=== PATIENT | female | born 1980 | race African-American/Black ===

== ENCOUNTER 2016-08-04 07:36 | Emergency (ER) | payer BC ==
--- NOTE | ~2016-08-04 | CT2 ---
[facility] A Service of [facility] RADIOLOGY TEXT RESULTS PATIENT: EVANGELINA BROWNE LOCATION: [facility] : 84 UNIT #: [id number] AGE: [address]: Henry Calles MD SEX: F ORDER DR: [id number] [facility] [address] [place], [place] [address] [id number] E MR#: [id number] Acc #: [id number] NAME: EVANGELINA BROWNE I. : 1980 SEX: F STUDY DATE/TIME: 08/04/2016 8:23 UNIT: [facility] ROOM: STUDY DESCRIPTION: CT Abd and Pelv W Cont Attending Physician: Henry Calles M.D. Ordering Physician: Henry Calles M.D. Primary Care Physician: Olayinka Marr M.D. MEDICAL IMAGING REPORT This report is preliminary unless electronic signature is present EXAM CT of the abdomen and pelvis with IV contrast media HISTORY Fell at home chasing kids at 1800 yesterday, complaining of right-sided abdominal head and pelvic pain for 2 days. TECHNIQUE Transaxial imaging of the abdomen and pelvis was performed with an IV bolus of contrast media. The CT exam was performed with one or more of the following radiation dose reduction techniques: automatic exposure control, adjustment of mA and/or kV according to patient size, and iterative reconstruction. FINDINGS Minimal atelectasis right lung base. The liver, gallbladder, spleen, adrenal glands, pancreas, and kidneys have a normal appearance. No dilated or thickened loops of bowel are identified. The uterus is unremarkable. There is trace fluid in the cul-de-sac. Bony elements are intact. No fractures are identified. CONCLUSION Trace fluid in the cul-de-sac which can be seen physiologically otherwise negative CT of the abdomen and pelvis. Dictated by... Cuong Fisher M.D. THIS IS AN ELECTRONICALLY VERIFIED REPORT Cuong Fisher M.D. at 08/04/2016 5:02 PM [facility] A Service of [facility] RADIOLOGY TEXT RESULTS PATIENT: EVANGELINA BROWNE [id number] : [birth year] UNIT #: [id number] AGE: [address]: Henry Calles MD SEX: F ORDER DR: EVAN/chrissy TD: 08/04/2016 11:08 JOB #: [id number] MEDICAL IMAGING REPORT Page 1 of 1 COPY
--- NOTE | ~2016-08-04 | CR72 ---
[facility] A Service of [facility] RADIOLOGY TEXT RESULTS PATIENT: EVANGELINA BROWNE LOCATION: [facility] : 84 UNIT #: [id number] AGE: [address]: Henry Calles MD SEX: F ORDER DR: [id number] [facility] [address] [place], [place] [address] [id number] E MR#: [id number] #: [id number] NAME: EVANGELINA BROWNE I. : 1980 SEX: F STUDY DATE/TIME: 08/04/2016 9:47 UNIT: [facility] ROOM: STUDY DESCRIPTION: CR Chest Single View Portable Attending Physician: Henry Calles M.D. Ordering Physician: Henry Calles M.D. Primary Care Physician: Olayinka Marr M.D. MEDICAL IMAGING REPORT This report is preliminary unless electronic signature is present EXAM Single view of the chest dated 08/04/2016 at 0947 hours. COMPARISON Single view chest dated 02/12/2016 at 0339 hours. HISTORY Right-sided chest pain and abdominal pain for a day. Patient fell. FINDINGS Single view of the chest was obtained. Poor inspiratory film does not demonstrate any significant patchy dense consolidation, pleural effusion, or pneumothorax. Heart, mediastinum, and bones are within normal limits. Dictated by... Vivien Whelan M.D. THIS IS AN ELECTRONICALLY VERIFIED REPORT Vivien Whelan M.D. at 08/04/2016 2:41 PM CPR/tmw TD: 08/04/2016 11:39 JOB #: [id number] MEDICAL IMAGING REPORT Page 1 of 1 COPY
[2016-08-04 07:15] LABS: URINE SOURCE CLEAN CATCH
[~2016-08-04 07:36] MED LIST: ACETAMINOPHEN; ADVAIR 2501 DISK W/D; ADVAIR 2501 DISK W/D NEB; ADVAIR 2501 DISK W/D PO; ALBUTEROL17 GM INH; ALBUTEROL17 GM NEB; AMOXICILLIN PO; ANSAID100 MG PO; BACTRIM DS TABL1 TA1 PO; BENTYL20 MG PO; COMBIVENT INH14.7 GM INH; DIAZEPAM PO; DICYCLOMINE HCL20 MG PO; DIFLUCAN PO; DOXYCYCLINE PO; DUONEB 2.5-0.5 M3 ML NEB; FLAGYL PO; FLEXERIL PO; FLEXERIL10 M1 PO; FLEXERIL10 MG PO; IBUPROFEN; IBUPROFEN PO; IBUPROFEN800 MG PO; KETOPROFEN PO; LORTAB 101 TAB 10/5 DOB; MEDROL DOSEPAK4 MG PO; NAPROSYN500 MG PO; NAPROXEN SODIU500 MG PO; NO MEDICATIONS; ORUDIS75 M1 PO; PEN-VEE K PO; PHENERGAN25 M1 PO; PHENERGAN25 MG PO; SINGULAIR; TAMIFLU75 M1 PO; TOBREX5 ML OP; ULTRAM PO; VICODIN 5/500 T1 TAB PO; VOLTAREN50 MG PO; VOLTAREN75 MG PO; ZITHROMAX PO; ZITHROMAX1 G/PKT PO; ZOFRAN ODT4 MG/UDTAB PO; ZOFRAN PO
[2016-08-04 07:37] LABS: URINE APPEARANCE CLEAR; URINE BILIRUBIN NEG (NEG); URINE BLOOD NEG (NEG); URINE COLOR YELLOW; URINE GLUCOSE NEG (NEG); URINE KETONE TRACE (NEG); URINE LEUKOCYTE ESTERASE NEG (NEG); URINE NITRATE NEG (NEG); URINE PH 6.5 (5-8); URINE PROTEIN NEG (NEG); URINE SPECIFIC GRAVITY 1.035 (1.003-1.035)
[2016-08-04 08:02] LABS: CULTURE INDICATED? NO
[2016-08-04 08:15] LABS: BASOPHIL% 0.4 % (0-2.5); EOSINOPHIL# 0.2 X10e3 (0-0.7); EOSINOPHIL% 1.4 % (0.0-7.0); HEMATOCRIT 37.9 % (35.0-45.0); HEMOGLOBIN 12.5 gm/dL (12.0-16.0); LYMPHOCYTE% 31.2 % (17.0-45.0); MEAN CELL VOLUME 70.9 FL (83-96); MEAN CORPUSCULAR HEMOGLOBIN 23.3 PG (28-34); MEAN CORPUSCULAR HGB CONC 32.9 g/dL (30-36); MONOCYTE# 0.8 X10e3 (0-1.0); MONOCYTE% 6.2 % (3.0-12.0); NEUTROPHIL# 7.8 X10e3 (1.5-7.1); NEUTROPHIL% 60.8 % (40-75); PLATELET COUNT 214 X10e3 (140-420); RED BLOOD COUNT 5.34 X10e (3.90-5.30); RED CELL DISTRIBUTION WIDTH 14.5 % (11.0-15.5); WHITE BLOOD COUNT 12.8 X10e3 (4.0-10.5)
[2016-08-04 08:16] LABS: DIFF IND NO
[2016-08-04 08:51] LABS: ALBUMIN SERUM 3.5 g/dL (3.5-5.0); ALKALINE PHOSPHATASE 65 U/L (32-92); ALT (SGPT) 10 U/L (10-40); AST (SGOT) 22 U/L (10-42); BILIRUBIN,TOTAL 0.3 mg/dL (0.2-2.0); BLOOD UREA NITROGEN 11 mg/dL (9-23); BUN/CREATININE RATIO 15.71; CALCIUM SERUM 8.8 mg/dL (8.4-10.2); CARBON DIOXIDE 23 mmol/L (22-31); CHLORIDE 105 mmol/L (100-111); CREATININE SERUM 0.7 mg/dL (0.6-1.4); GLOM FILT RATE Estimated 131.9 mL/min (>60); GLUCOSE FASTING 98 mg/dL (70-110); POTASSIUM 3.7 mmol/L (3.5-5.1); SODIUM 137 mmol/L (135-145)
[2016-08-04 08:52] LABS: BILIRUBIN, DIRECT <0.1 mg/dL (0.0-0.2); BILIRUBIN,INDIRECT 0.2 mg/dL (0.0-0.9)
[2016-08-04 10:20] LABS: POC - CREATININE 0.68 mg/dL (0.44-1.03); POC - GFR >60.0 mL/min (>60)
== END 2016-08-04 10:23 | disposition home or self-care (01) ==
LOC: CED 07:36
PROVIDERS: Emergency Medicine
DX: S30.0XXA Contusion of lower back and pelvis, initial encounter (principal); J45.909 Unspecified asthma, uncomplicated; W01.0XXA Fall on same level from slipping, tripping and stumbling without subsequent striking against object, initial encounter; Y93.89 Activity, other specified; Y92.009 Unspecified place in unspecified non-institutional (private) residence as the place of occurrence of the external cause
CPT/HCPCS: 71010; 74177; 80048; 80076; 81003; 82565; 84703; 85025; 96361; 96374; 99284; J2270; Q9967

== ENCOUNTER 2017-01-03 18:58 | Emergency (ER) | payer BC, OTHER ==
[~2017-01-03] VITALS: Ht 172.7 cm; Wt 77.1 kg
== END 2017-01-03 19:15 | disposition left against medical advice (07) ==
LOC: CED 18:58
DX: Z53.21 Procedure and treatment not carried out due to patient leaving prior to being seen by health care provider (principal)